=== PATIENT | male | born 1985 | race African-American/Black ===

== ENCOUNTER 2021-07-25 20:37 | Emergency (ER) | payer BC, MEDICAID ==
[~2021-07-25] VITALS: Ht 185.4 cm; Wt 85.0 kg
[2021-07-26 00:35] LABS: CHLORIDE 109 mEq/L (98-107)
[2021-07-26 00:37] LABS: BASOPHILS % 0.3 % (0.0-2.0); EOSINOPHILS % 0.8 % (0.0-5.0); HEMATOCRIT. 48.8 % (42.0-52.0); HEMOGLOBIN. 16.3 g/dL (14.0-18.0); LYMPHOCYTES % 49.9 % (20.0-50.0); MEAN CORPUSCULAR HEMOGLOBIN 30.6 pg (28.0-32.0); MEAN CORPUSCULAR VOLUME 91.5 fL (80.0-94.0); MEAN PLATELET VOLUME 9.4 fl (7.4-10.4); MONOCYTES % 8.4 % (2.0-8.0); NEUTROPHILS % 40.6 % (40.0-76.0); PLATELET 188 x1000/uL (130-400); RED BLOOD CELL COUNT 5.33 mill/uL (4.7-6.1); RED CELL DISTRIBUTION WIDTH 12.5 % (11.6-14.6)
[2021-07-26 03:30] VITALS: BP 135/75
== END 2021-07-26 04:30 | disposition home or self-care (01) ==
LOC: ER 20:37
DX: U07.1 COVID-19 (principal); R63.0 Anorexia; J02.9 Acute pharyngitis, unspecified
CPT/HCPCS: 36415; 71045; 80053; 85025; 87426; 99284; C9803; U0003; U0005